=== PATIENT | female | born 1935 | race Caucasian/White ===

== ENCOUNTER → 2018-06-22 | Outpatient (CLI) | payer MEDICARE, OTHER ==
[~2018-06-22] MED LIST: ATOR10TA65 PO; CALC-649 PO; EZET10TA41 PO; LEVO75TA73 PO; LOSA-51 PO; METO50TA19 PO; OMEG100027 PO; RALO60TA12 PO
--- NOTE | 2018-06-22 15:49 | RADIOLOGY IMAGING REPORT ---
FACILITY: [facility] PATIENT NAME: JORGE OLMEDO : [id number] MR: [id number] V: [id number] EXAM DATE: [id number] ORDERING PHYSICIAN: SHER MEDELLIN TECHNOLOGIST: Dulce Hines PROCEDURE:BILATERAL DIGITAL SCREENING MAMMOGRAM WITH CAD ASSISTED INTERPRETATION & 3D TOMOSYNTHESIS COMPARISON:None. INDICATIONS:screening FINDINGS: The breast tissue demonstrated scattered fibroglandular tissue elements. There is no suspicious mass, calcification, or architectural distortion. DIAGNOSTIC CATEGORY 1--NEGATIVE. RECOMMENDATIONS: ROUTINE MAMMOGRAM AND CLINICAL EVALUATION IN 1 YR. IMPRESSION: BIRADS 1: Negative. No mammographic evidence for malignancy. Dictated by: Tyler Kim M.D. on 06/22/2018 at 14:46 Transcribed by: BLANCA on 06/22/2018 at 15:17 Approved by: Tyler Kim M.D. on 06/22/2018 at 15:47 [facility]
== END ==
LOC: MAMO 02:50
PROVIDERS: ATTEND Nurse Practitioner Family
DX: Z12.31 Encounter for screening mammogram for malignant neoplasm of breast (principal)
CPT/HCPCS: 77063; 77067